=== PATIENT | female | born 1965 | race Caucasian/White ===

== ENCOUNTER 2016-10-26 16:44 | Emergency (ER) | payer MEDICARE, MEDICAID ==
--- NOTE | 2016-10-31 08:22 | ER ---
ADMIT: 10/26/2016 RM/LOC: ER [facility] [place] MR#: [id number] [address] [address] IVETTE PIERCE [address] [place] [address] Emergency Room Report SEX: F AGE: 51 : 1965 DATE: 10/26/2016 A 51-year-old female who had an unresponsive episode yesterday. She did not lose consciousness according to the son. She was sitting, smoking and then apparently stared off into space according to the son and would not answer the questions nor move. He subsequently called, carried her into the house later down, where he states several hours later, she started responding. He said throughout the event she did not appear to be in any distress or she would not answer questions or communicate with anyone. She does have a history of petit mal seizures, bipolar disorder, fibromyalgia, PTSD. She has recently moved here from another community, so has no medical care at this point. CBC was significant for white count 11.4, potassium of 3.6, carbamazepine level was 0.5. Patient was discharged with diagnosis of seizure, medical noncompliance, was instructed to take her medications as prescribed and to follow up with the primary doctor yet this week for any further problem. Cruzito Yu MD/ butch JOB #: [id number] CC: Yuriy Daniels MD, Attending Physician Sae Mcdaniels MD, Family Physician
== END 2016-10-26 18:30 | disposition home or self-care (01) ==
LOC: ER 16:44
DX: G40.909 Epilepsy, unspecified, not intractable, without status epilepticus (principal); F17.210 Nicotine dependence, cigarettes, uncomplicated; Z88.2 Allergy status to sulfonamides; Z88.8 Allergy status to other drugs, medicaments and biological substances; Z79.899 Other long term (current) drug therapy

== ENCOUNTER 2016-11-02 13:06 | Emergency (ER) | payer MEDICARE, MEDICAID ==
--- NOTE | 2016-11-10 19:06 | ER ---
ADMIT: 11/02/2016 RM/LOC: ER [facility] MR#: [id number] [address] IVETTE PIERCE [address] [place] [address] Emergency Room Report SEX: F AGE: 51 : 1965 DATE: 11/02/2016 The patient is a 51-year-old female with past medical history of PTSD, fibromyalgia, and anxiety disorder, who came to the ER with chief complaint of uncontrolled anxiety. The patient came by herself and denies any suicidal ideation, overdose, or ingestion of other drugs other than the prescribed. The patient has been prescribed gabapentin and Tegretol and states is being following up according to the prescribed orders by the previous physician. At the moment, the patient has no primary care doctor and looking for a new one as allegedly, she moved to the city recently. The patient denies any trauma. The patient denies any new happenings in the life and states the last 3 months, her anxiety level also increased. The patient denies using any street drugs. On physical examination, vitals are normal. The patient was mildly distressed and anxious, sitting in the bed and in no obvious pain. Head and neck, had no nystagmus. Pupils are 3 mm, reactive to light bilaterally. Neuro exam was grossly normal. Lungs are clear bilaterally. Normal S1, S2. Abdomen is soft. There are no skin rashes. The patient has no suicidal or homicidal ideation and denies any hallucinations and delusions. The patient received 1 mg of Ativan in the ER, which controlled the anxiety. The patient was discharged to home with Atarax, hydroxyzine 25 mg every 8 hours for anxiety, just for few a days until she can follow up with the primary doctor. The patient is stable to be discharged to home and was advised to follow up with the primary doctor. Tenzin Aguilar MD/ butch JOB #: [id number] CC: Yuriy Daniels MD, Attending Physician UNKNOWN, Family Physician
== END 2016-11-02 15:30 | disposition home or self-care (01) ==
LOC: ER 13:06
DX: F41.9 Anxiety disorder, unspecified (principal); E11.9 Type 2 diabetes mellitus without complications; Z88.2 Allergy status to sulfonamides; F17.210 Nicotine dependence, cigarettes, uncomplicated; Z91.040 Latex allergy status; Z79.899 Other long term (current) drug therapy

== ENCOUNTER 2016-11-28 11:58 | Emergency (ER) | payer MEDICARE, MEDICAID ==
--- NOTE | 2016-11-28 22:03 | ER ---
ADMIT: 11/28/2016 RM/LOC: ER [facility] MR#: [id number] [address] ZACHARY PIERCELY Jannet [address] [place] [address] Emergency Room Report SEX: F AGE: 51 : 1965 DATE: 11/28/2016 HISTORY: The patient is a 51-year-old female with a past medical history of PTSD, fibromyalgia, anxiety, and mood disorder, came to the ER with chief complaint of 1 month of allegedly nervous breakdown and feeling tired and feeling lack of energy, decreased appetite, disturbed sleep, difficulty going to sleep at night. The patient denies any suicidal or homicidal ideation. The patient is already taking antidepression medication and anti-anxiety medications, the patient has no followups, no primary care doctor at the moment. The patient answers the questions, but is calm and quiet and prefers not to get involved in the conversation. Mood is dysthymic, affect is congruent. The patient has no hallucination or delusion. The patient denies any congestion of other medications or drug use. Per friend, the patient's appetite has decreased for a month, and the patient prefers to be in bed and crawled. PHYSICAL EXAMINATION: GENERAL: The patient is alert and oriented to person, place, and time, in no pain or distress. HEAD AND NECK: Noncontributory. CHEST: Clear bilaterally, normal heart sounds. ABDOMEN: Soft. NEUROLOGICAL: Motor and sensory and the rest of neuro exam is grossly normal. The patient received IV fluids, 1 L normal saline. The patient had normal CMP and also the TSH and free T4 levels were also normal. The patient has no homicidal ideation too. The patient is stable to be discharged to [facility] for further assessment and evaluation. The patient was consulted, talked in detail about the importance of having close followup with the primary doctor. The patient promised to follow up with the primary care doctor in 2 days. The patient also promised to return to the ER or call any of the hot lines or emergency if she had any suicidal or homicidal ideation or if she has any questions or concerns. The patient was discharged. Tenzin Aguilar MD/ butch JOB #: [id number] CC: Yuriy Daniels MD, Attending Physician Sae Mcdaniels MD, Family Physician
== END 2016-11-28 15:10 | disposition home or self-care (01) ==
LOC: ER 11:58
DX: F41.8 Other specified anxiety disorders (principal); F17.210 Nicotine dependence, cigarettes, uncomplicated; Z88.2 Allergy status to sulfonamides; Z88.8 Allergy status to other drugs, medicaments and biological substances